=== PATIENT | female | born 1990 | race Caucasian/White ===

== ENCOUNTER 2019-12-24 09:23 | Emergency (ER) | payer SELFPAY ==
--- NOTE | ~2019-12-24 | XR_ITS ---
EXAMINATION: XR chest 2V DATE: 12/24/2019 09:52 INDICATION: Midline chest pain TECHNIQUE: PA and lateral views of the chest are obtained. COMPARISON: 11/06/2018 FINDINGS: The lungs are free of acute opacities. There is no pleural effusion or pneumothorax. The ca rdiomediastinal silhouette is normal. There is mild thoracic spondylosis. IMPRESSION: 1. No acute cardiopulmonary abnormality. Reviewed, dictated and finalized at location A.
--- NOTE | ~2019-12-24 | CT_ITS ---
EXAMINATION: CTA chest PE protocol DATE: 12/24/2019 10:36 INDICATION: Chest pain, history of pulmonary embolism TECHNIQUE: Computed tomography angiography (CTA) of the chest was performed with 100 mL Omnipaque-350 intravenous contrast timed to evaluate the pulmonary arteries. Coronal maximum intensity projection 3D-reconstructions were created by the technologist. The dose-length product (DLP) was 1015.30 mGy-cm . Automated exposure control and iterative reconstruction technique were employed. COMPARISON: 11/07/2018 FINDINGS: The pulmonary arteries are well-opacified. No pulmonary embolism is identified. Calcified p ulmonary nodules and calcified right hilar lymph nodes are consistent with old granulomatous disease. There is no pleural effusion or pneumothorax. The lungs are free of acute opacities. Triangular soft tissue density in the anterior mediastinum has the appearance of residual thymus. No pathologically enlarged thoracic lymph nodes are identified. The heart size is normal. The gallbladder is surgically absent. IMPRESSION: 1. No pulmonary embolism or acute cardiopulmonary abnormality. Reviewed, dictated and finalized at location A.
--- NOTE | 2019-12-24 09:25 | ECG_ITS ---
Measurements Intervals [place] Rate: 114 P: 40 HI: 154 QRS: -22 QRSD: 91 T: 19 QT: 320 QTc: 442 Interpretive Statements SINUS TACHYCARDIA LOW QRS VOLTAGE IN PRECORDIAL LEADS BORDERLINE R WAVE PROGRESSION, ANTERIOR LEADS INFERIOR INFARCT, AGE INDETERMINATE BASELINE ARTIFACT- II, III, AVR, AVF, V1-V4 ABNORMAL ECG Electronically Signed On 12-24-2019 12:03:25 CDT by Dorian Fraga D.O.
[2019-12-24 09:27] VITALS: BP 172/114; PULSE 116; RESP 30; TEMP 36.6; O2SAT 99
[2019-12-24 09:35] VITALS: PULSE 111
[2019-12-24 09:47] LABS: Basophils Percent Auto 0.1 % (0.2-1.2); Eosinophils Absolute Auto 0.2 K/mm3 (0-0.3); Eosinophils Percent Auto 2.9 % (0-4.4); Hematocrit 39.2 % (37.0-47.0); Hemoglobin 12.5 g/dL (12.0-15.0); Immature Granulocyte Absolute 0.02 K/mm3 (0.00-0.031); Immature Granulocyte Percent A 0.3 % (0-0.5); Lymphocytes Absolute Auto 1.35 K/mm3 (0.9-3.2); Lymphocytes Percent Auto 17.1 % (18.3-44.2); Mean Corpuscular HGB Conc 31.9 g/dl (32-36); Mean Corpuscular Hemoglobin 26.1 pg (26-34); Mean Corpuscular Volume 81.8 fl (80-100); Mean Platelet Volume 10.5 fl (7.4-10.4); Monocytes Absolute Auto 0.3 K/mm3 (0.1-0.6); Monocytes Percent Auto 3.8 % (2.6-8.5); Neutrophils Percent Auto 75.8 % (45.5-73.1); Platelet Count Result 325 k/mm3 (150-375); Red Blood Count 4.79 M/mm3 (4.2-5.4); White Blood Count 7.9 K/mm3 (4.5-10.0)
[2019-12-24 10:02] LABS: INR 1.1; Prothrombin Time 13.7 Seconds (11.1-14.7)
[2019-12-24 10:03] LABS: Partial Thromboplastin Time 30.3 SECONDS (22.3-36.8)
[2019-12-24 10:07] LABS: Anion Gap 8 mmol/L (8-16); Blood Urea Nitrogen 10 mg/dL (7-17); Calcium 8.7 mg/dL (8.4-10.2); Carbon Dioxide 25 mmol/L (22-30); Chloride 104 mmol/L (98-107); Estimated CRCL calculation 161 ml/min; Estimated Glomerular Filt Rate > 60; Glucose 100 mg/dL (65-105); Sodium 137 mmol/L (137-145)
--- NOTE | 2019-12-24 10:11 | ED.CHESTPAIN ---
HPI - Chest Pain General Chief Complaint: Chest Pain Stated Complaint: CP, PMH of blood clots Time Seen by Provider: 12/24/19 10:11 Source: patient Mode of arrival: ambulatory Limitations: no limitations History of Present Illness HPI narrative: Patient is a 29-year-old female with a history of lupus anticoagulant and factor V Leiden deficiency with history of blood clot who presents for evaluation of chest pain. Patient reports she has had chest pain over the left side of her chest over the past week. It is constant in nature. Not exacerbated with exertion. No associated fever, cough or shortness of breath. Patient states she has a history of anxiety and she has been off of her anticoagulation and feels very anxious regarding her lack of insurance and has not been able to follow-up with her other providers. Patient has been off of anticoagulation over a year and wanted to make sure she was not having a recurrent blood clot. Patient denies leg swelling or pain. No hemoptysis. PT endorses anxiety and panic often. Related Data Allergies Allergy/AdvReac Type Severity Reaction Status Date / Time No Known Allergies Allergy Unknown Unknown Verified 12/24/19 09:50 Review of Systems Review of Systems: Narrative: CONSTITUTIONAL: Denies fever, chills, or sweats. EYES: Denies visual changes, redness, or discharge. ENT: Denies rhinorrhea, congestion, sore throat, or otalgia. CARDIOVASCULAR: Reports chest pain, denies palpitations RESPIRATORY: Denies cough or dyspnea. GASTROINTESTINAL: Denies abdominal pain, nausea, vomiting, or diarrhea. GENITOURINARY: Denies dysuria or hematuria. SKIN: Denies rash or itching. MUSCULOSKELETAL: Denies back pain, joint pain, or myalgia. NEUROLOGIC: Denies headache, numbness, or weakness. [facility] Past Medical History Medical History (Updated 12/24/19 @ 11:39 by Buffy Phan MD) Anxiety Factor V Leiden Lupus anticoagulant positive Pulmonary embolism Family History Family History (Updated 03/31/17 @ 14:37 by DOCTOR UNKNOWN) Mother Patient's mother is in good health Father Patient's father is in good health Sibling Patient's sister is in good health Patient's brother is in good health Other Family history of malignant neoplasm Hypertension Social History Social History Smoking status: Never smoker Alcohol intake: current Exam Narrative: Exam Narrative: GENERAL: Awake, alert, conversant HEAD: Normocephalic, atraumatic. EYES: PERRLA and EOMI. ENT: Nares clear, no rhinorrhea or epistaxis. Mucous membranes moist. NECK: Supple. CHEST: No respiratory distress, breathing even and non labored, no chest wall tenderness HEART: Tachycardic rate, sinus rhythm ABDOMEN:Non distended, non tender EXTREMITIES: Normal range of motion. No edema. SKIN: Warm, dry, no rash. NEURO:No focal deficits. Alert and oriented x3 Psych: Patient endorses extreme anxiety Course Vital Signs Vital signs: Vital Signs Temperature 36.6 C 12/24/19 09:27 Pulse Rate 116 H 12/24/19 09:27 Respiratory Rate 30 H 12/24/19 09:27 Blood Pressure 172/114 H 12/24/19 09:27 Pulse Oximetry 99 12/24/19 09:27 Temperature 36.6 C 12/24/19 09:27 Pulse Rate 112 H 12/24/19 10:17 Respiratory Rate 31 H 12/24/19 10:17 Blood Pressure 118/66 12/24/19 10:17 Pulse Oximetry 100 12/24/19 10:17 MDM - Chest Pain MDM Narrative Medical decision making narrative: Patient presenting for evaluation of chest pain that has been present over a week. At the time of assessment, patient is hyperventilating, tearful, tachycardic. No hypotension. No reproducible chest wall pain. No hypoxemia. Given patient's history wanted to evaluate for any evidence of cardio pulmonary pathology. Imaging obtained, no evidence of PE on imaging. No COVID type features or evidence of pneumonia. Patient's vital signs normalized in the ER with heart rate 80, blood press
[2019-12-24] MEDS: ASPIRIN 81 MG CHEWABLE TABLET 324 MG PO (10:16)
[2019-12-24 10:17] VITALS: BP 118/66; PULSE 112; RESP 31; O2SAT 100
[2019-12-24 10:18] LABS: Troponin I < 0.012 ng/mL (0.000-0.034)
[2019-12-24 11:26] VITALS: BP 113/74; PULSE 90; RESP 12; O2SAT 98
[2019-12-24 11:46] VITALS: BP 116/97; PULSE 99; RESP 18; O2SAT 96
== END 2019-12-24 11:47 | disposition home or self-care (01) ==
PROVIDERS: Emergency Provider Emergency Medicine; PCP Internal Medicine
DX: D68.51 Activated protein C resistance (principal); Z86.711 Personal history of pulmonary embolism; F41.9 Anxiety disorder, unspecified
CPT/HCPCS: 36415; 71046; 71275; 80048; 84484; 85025; 85610; 85730; 93005; 99284; A9270; Q9967

== ENCOUNTER → 2020-09-30 12:18 | Outpatient (CLI) | payer OTHER, SELFPAY ==
--- NOTE | ~2020-09-30 | CT_ITS ---
EXAMINATION: CTA chest PE protocol EXAM DATE: 09/30/2020 13:32 INDICATION: Chest pain, HX OF PE . TECHNIQUE: Spiral CTA of the chest (pulmonary arteries) was performed with 100 cc Omnipaque 350 intr avenous contrast injection. Images were acquired during the pulmonary arterial phase. Coronal maxi mum intensity projection 3D-reconstructions were created by the technologist on dedicated workstation . Axial, coronal and sagittal reformatted images were reviewed. The dose-length product (DLP) for t his examination was 737.42 mGy-cm. The exposure was tailored according to patient size (auto mA exp osure control), and iterative reconstruction (ASIR) was used as additional dose reduction technique. Comparison is made to prior examination from 12/24/2019. FINDINGS: Chronic filling defect right lower lobe posterior basal segment, scarring from prior episo de of pulmonary embolism. No evidence of acute, treatable pulmonary embolism. No thoracic aortic diss ection. Chronic right basilar, hilar granulomata. No acute airspace disease. There are no pleural o r pericardial effusions. Tracheobronchial tree is patent. There is no mediastinal, hilar or axill justine lymphadenopathy. There is no pneumothorax. Heart normal in size. No evidence of coronary ar terial calcification. There are cholecystectomy clips. There is mild thoracic spondylosis without o steoblastic or osteolytic lesions identified. IMPRESSION: 1. No pulmonary emboli or acute findings. 2. 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 3. Right basilar granulomata. Reviewed, dictated and finalized at location B.
== END ==
PROVIDERS: PCP Internal Medicine; Visit Provider Internal Medicine
DX: R07.89 Other chest pain (principal)
CPT/HCPCS: 71275; Q9967

== ENCOUNTER 2021-02-12 20:54 | Emergency (ER) | payer OTHER, SELFPAY ==
--- NOTE | ~2021-02-12 | XR_ITS ---
EXAMINATION: XR chest 2V 02/12/2021 21:41 INDICATION: 2 view chest PROCEDURE: 2 view chest COMPARISON: 12/24/2019 FINDINGS: The lungs are clear. The cardiomediastinal silhouette is within normal limits. There are no pleural effusions. There is no pneumothorax suspected. There is calcified granuloma in the right midlung zone. IMPRESSION: 1: NO ACUTE CARDIOPULMONARY DISEASE. Reviewed, dictated and finalized at location A.
--- NOTE | 2021-02-12 21:20 | ECG_ITS ---
Measurements Intervals [place] Rate: 115 P: 40 AL: 162 QRS: -29 QRSD: 74 T: 15 QT: 342 QTc: 474 Interpretive Statements SINUS TACHYCARDIA VOLTAGE CRITERIA FOR LVH POOR R WAVE PROGRESSION, CONSIDER ANTERIOR INFARCT INFERIOR INFARCT, AGE INDETERMINATE BASELINE ARTIFACT- I, II, III, AVR, AVL, V1-V4 ABNORMAL ECG Electronically Signed On 02-13-2021 6:39:51 CDT by Dorian Fraga D.O.
[2021-02-12 21:24] VITALS: BP 137/103; PULSE 125; RESP 24; TEMP 36.3; O2SAT 99
[2021-02-12 21:48] LABS: Basophils Percent Auto 0.2 % (0.2-1.2); Eosinophils Absolute Auto 0.2 K/mm3 (0-0.3); Eosinophils Percent Auto 2.1 % (0-4.4); Hematocrit 41.7 % (37.0-47.0); Hemoglobin 13.4 g/dL (12.0-15.0); Immature Granulocyte Absolute 0.02 K/mm3 (0.00-0.031); Immature Granulocyte Percent A 0.2 % (0-0.5); Lymphocytes Absolute Auto 1.68 K/mm3 (0.9-3.2); Lymphocytes Percent Auto 20.3 % (18.3-44.2); Mean Corpuscular HGB Conc 32.1 g/dl (32-36); Mean Corpuscular Hemoglobin 27.1 pg (26-34); Mean Corpuscular Volume 84.2 fl (80-100); Mean Platelet Volume 10.4 fl (7.4-10.4); Monocytes Absolute Auto 0.4 K/mm3 (0.1-0.6); Monocytes Percent Auto 4.8 % (2.6-8.5); Neutrophils Percent Auto 72.4 % (45.5-73.1); Platelet Count Result 328 k/mm3 (150-375); Red Blood Count 4.95 M/mm3 (4.2-5.4); Red Cell Distribution Width 14.1 % (11.5-14.5); White Blood Count 8.3 K/mm3 (4.5-10.0)
[2021-02-12 21:52] LABS: Prothrombin Time 13.5 Seconds (11.1-14.7)
[2021-02-12 21:53] LABS: Partial Thromboplastin Time 34.9 SECONDS (22.3-36.8)
[2021-02-12 21:58] LABS: Anion Gap 10 mmol/L (8-16); Blood Urea Nitrogen 10 mg/dL (7-17); Calcium 9.6 mg/dL (8.4-10.2); Carbon Dioxide 25 mmol/L (22-30); Chloride 105 mmol/L (98-107); Estimated CRCL calculation 165 ml/min; Estimated Glomerular Filt Rate > 60; Glucose 112 mg/dL (65-110); Potassium 3.9 mmol/L (3.4-5.0); Sodium 140 mmol/L (137-145)
[2021-02-12 22:09] LABS: Troponin I < 0.012 ng/mL (0.000-0.034)
[2021-02-12 22:15] VITALS: BP 139/101; PULSE 103; RESP 22; O2SAT 98
[2021-02-12 22:18] VITALS: PULSE 103
[2021-02-12 23:09] LABS: D Dimer 0.34 ug/mL (<0.48)
[2021-02-12] MEDS: LORazepam INJ (*CRX) 2 MG/ML VIAL 0.5 MG IV PUSH (23:09)
--- NOTE | 2021-02-13 00:54 | ED.GENADULT ---
HPI - General Adult General Chief complaint: Chest Pain Stated complaint: chest pain Time Seen by Provider: 02/12/21 22:02 History of Present Illness HPI narrative: Patient is a 30-year-old female who presents ER with chest pain. It occurs occasional on her left side and the right side of her chest. It can occur for hours at a time. Unknown what provokes it. Gets better when she lies down and rests. Associate with anxiety. Has history of PE and intermittently takes her medication because she will sometimes forget. No hemoptysis. No fevers or chills or sweats. No difficulty breathing. Related Data Allergies Allergy/AdvReac Type Severity Reaction Status Date / Time No Known Allergies Allergy Unknown Unknown Verified 12/24/19 09:50 Review of Systems Review of Systems: All systems reviewed & are unremarkable except as noted in HPI and below Constitutional: Constitutional: Denies chills, Denies fever(s) and Denies weakness ENT: Denies nasal congestion and Denies sore throat Cardiovascular: Cardiovascular: Reports chest pain, Denies rapid heart rate and Denies radiating jaw, neck or arm pain Respiratory: Respiratory: Denies cough, Denies dyspnea and Denies wheezing Gastrointestinal: Gastrointestinal: Denies abdominal pain, Denies nausea and Denies vomiting Musculoskeletal: Musculoskeletal: Reports muscle cramps Psychiatric: Psychiatric: Reports anxiety PMFSH Past Medical History Medical History (Updated 02/13/21 @ 01:00 by Kj oRdgers MD) Anxiety Factor V Leiden Lupus anticoagulant positive Pulmonary embolism Family History Family History (Updated 03/31/17 @ 14:37 by DOCTOR UNKNOWN) Mother Patient's mother is in good health Father Patient's father is in good health Sibling Patient's sister is in good health Patient's brother is in good health Other Family history of malignant neoplasm Hypertension Social History Social History Smoking status: Never smoker Alcohol intake: current Exam Narrative: GENERAL: Anxious-appearing, obese, and in no acute distress. HEAD: Normocephalic, atraumatic. EYES: PERRL and EOMI. CHEST: Clear to auscultation. No respiratory distress. HEART: Tachycardic and regular. Normal peripheral pulses. EXTREMITIES: Normal range of motion. No edema. SKIN: Warm, dry, no rash. NEURO: Alert and oriented x3. PSYCH: Anxious and tearful about her health. Normal thought content otherwise. Course Course Emergency Course: Patient is only tachycardic when she begins talking about her perceived medical issue and becomes anxious. Otherwise she rest comfortably with a normal heart rate and normal respiratory rate. She is without hypoxia. D-dimer negative. Symptoms felt to be anxiety related and not related to UT or PE. Discharge home. Patient does feel improvement with Ativan. Vital Signs Vital signs: Vital Signs Temperature 97.3 F L 02/12/21 21:24 Pulse Rate 125 H 02/12/21 21:24 Respiratory Rate 24 H 02/12/21 21:24 Blood Pressure 137/103 H 02/12/21 21:24 Pulse Oximetry 99 02/12/21 21:24 Temperature 97.3 F L 02/12/21 21:24 Pulse Rate 103 H 02/12/21 22:18 Respiratory Rate 22 H 02/12/21 22:15 Blood Pressure 139/101 H 02/12/21 22:15 Pulse Oximetry 98 02/12/21 22:15 Medical Decision Making Vital Signs Vital Signs: Vital Signs Temperature 97.3 F L 02/12/21 21:24 Pulse Rate 125 H 02/12/21 21:24 Respiratory Rate 24 H 02/12/21 21:24 Blood Pressure 137/103 H 02/12/21 21:24 Pulse Oximetry 99 02/12/21 21:24 Temperature 97.3 F L 02/12/21 21:24 Pulse Rate 103 H 02/12/21 22:18 Respiratory Rate 22 H 02/12/21 22:15 Blood Pressure 139/101 H 02/12/21 22:15 Pulse Oximetry 98 02/12/21 22:15 Lab Data Result diagrams: 02/12/21 21:36 02/12/21 21:36 Labs: Lab Results 02/12/21 02/12/21 02/12/21 Range/Units 21:36 21:36 21:
[2021-02-13 01:08] VITALS: BP 134/95; PULSE 99; RESP 98; O2SAT 20
== END 2021-02-13 01:17 | disposition home or self-care (01) ==
PROVIDERS: Emergency Provider Emergency Medicine; PCP Internal Medicine
DX: R07.89 Other chest pain (principal); F41.9 Anxiety disorder, unspecified; D68.51 Activated protein C resistance; Z86.711 Personal history of pulmonary embolism; R00.0 Tachycardia, unspecified; R94.31 Abnormal electrocardiogram [ECG] [EKG]; Z79.01 Long term (current) use of anticoagulants
CPT/HCPCS: 36415; 71046; 80048; 84484; 85025; 85380; 85610; 85730; 93005; 96374; 99284; J2060

== ENCOUNTER 2022-03-20 11:29 | Emergency (ER) | payer OTHER, SELFPAY ==
[2022-03-20] VITALS (9 sets, daily range): BP systolic 104–149; BP diastolic 68–93; PULSE 68–96; RESP 18–20; TEMP 36.4; O2SAT 98–100
--- NOTE | ~2022-03-20 | XR_ITS ---
XR chest 2V 03/20/2022 12:55 Indication: Sided chest pain. History of pulmonary embolism. Procedure: PA and lateral views of the chest Comparison: Comparison to multiple prior studies sequentially, with oldest reviewed study dated 06/09. Findings: Heart size normal. No focal air space disease, pulmonary edema, pleural effusion or suspect ed pneumothorax. There are calcified granulomas in the right lung. Impression: 1: No acute cardiopulmonary disease. Reviewed, dictated and finalized at location A. ATION PROFESSOR Impression: 1: No acute cardiopulmonary disease.
--- NOTE | 2022-03-20 11:31 | ECG_ITS ---
Measurements Intervals [place] Rate: 78 P: 49 MS: 157 QRS: -6 QRSD: 91 T: 23 QT: 375 QTc: 428 Interpretive Statements SINUS RHYTHM BASELINE ARTIFACT MODERATE VOLTAGE CRITERIA FOR LVH, CONSIDER NORMAL VARIANT CANNOT RULE OUT ANTERIOR MYOCARDIAL INFARCTION , OF INDETERMINATE AGE ABNORMAL ECG COMPARED TO ECG 02/12/2021 21:27:20 HEART RATE HAS DECREASED CRITERIA FOR INFERIOR INFARCTION NO LONGER APPRECIATED Electronically Signed On 03-20-2022 14:11:53 CABINETMAKER SUPERVISOR by Ry Dillon M.D.
[2022-03-20 11:50] LABS: Basophils Percent Auto 0.1 % (0.2-1.2); Eosinophils Absolute Auto 0.1 K/mm3 (0-0.3); Eosinophils Percent Auto 1.7 % (0-4.4); Hematocrit 38.1 % (37.0-47.0); Hemoglobin 12.2 g/dL (12.0-15.0); Immature Granulocyte Absolute 0.01 K/mm3 (0.00-0.031); Immature Granulocyte Percent A 0.1 % (0-0.5); Lymphocytes Absolute Auto 1.28 K/mm3 (0.9-3.2); Lymphocytes Percent Auto 18.6 % (18.3-44.2); Mean Corpuscular Hemoglobin 26.7 pg (26-34); Mean Corpuscular Volume 83.4 fl (80-100); Mean Platelet Volume 9.8 fl (7.4-10.4); Monocytes Absolute Auto 0.3 K/mm3 (0.1-0.6); Monocytes Percent Auto 4.6 % (2.6-8.5); Neutrophils Absolute Auto 5.2 K/mm3 (1.3-6.7); Neutrophils Percent Auto 74.9 % (45.5-73.1); Platelet Count Result 288 k/mm3 (150-375); Red Blood Count 4.57 M/mm3 (4.2-5.4); Red Cell Distribution Width 14.6 % (11.5-14.5); White Blood Count 6.9 K/mm3 (4.5-10.0)
[2022-03-20 12:02] LABS: Alanine Aminotransferase 28 U/L (6-35); Albumin Level 4.5 g/dL (3.5-5.1); Alkaline Phosphatase 88 U/L (38-126); Anion Gap 8 mmol/L (8-16); Aspartate Amino Transferase 25 U/L (14-36); Bilirubin,Total 0.6 mg/dL (0.2-1.3); Blood Urea Nitrogen 7 mg/dL (7-17); Calcium 9.4 mg/dL (8.4-10.2); Carbon Dioxide 24 mmol/L (22-30); Chloride 105 mmol/L (98-107); Estimated CRCL calculation 193 ml/min; Estimated Glomerular Filt Rate > 60; Glucose 101 mg/dL (65-110); Lipase 53 U/L (23-300); Potassium 3.8 mmol/L (3.4-5.0); Sodium 137 mmol/L (137-145)
[2022-03-20 12:04] LABS: Prothrombin Time 13.2 Seconds (11.1-14.7)
[2022-03-20 12:13] LABS: Troponin I < 0.012 ng/mL (0.000-0.034)
--- NOTE | 2022-03-20 13:50 | ED.CHESTPAIN ---
HPI - Chest Pain General Chief Complaint: Chest Pain Stated Complaint: chest pain, 11 wks preg Time Seen by Provider: 03/20/22 13:07 History of Present Illness HPI narrative: 31-year-old female with history of factor V Leiden and pulmonary embolism presenting the emergency department for evaluation after having an episode of chest pain. Patient states her last PE was in 2015, patient is approximate 11 weeks and is not currently taking Eliquis. Patient states that she had onset of left-sided chest pain at rest. Patient states the chest pain was sharp and lasted approximately 3 seconds. Patient states she has had no further chest pain since. Patient denies any current. Patient denies any associated shortness of breath Patient does have follow-up with Dr. Quesada Related Data Home Medications Medication Instructions Recorded Confirmed sertraline 100 mg tablet mg 03/20/22 Allergies Allergy/AdvReac Type Severity Reaction Status Date / Time No Known Allergies Allergy Unknown Unknown Verified 03/20/22 12:36 Review of Systems Review of Systems: CONSTITUTIONAL: Denies fever, chills, or sweats. EYES: Denies visual changes, redness, or discharge. ENT: Denies rhinorrhea, congestion, sore throat, or otalgia. CARDIOVASCULAR: See HPI RESPIRATORY: Denies cough or dyspnea. GASTROINTESTINAL: Denies abdominal pain, nausea, vomiting, or diarrhea. GENITOURINARY: Denies dysuria or hematuria. SKIN: Denies rash or itching. MUSCULOSKELETAL: Denies back pain, joint pain, or myalgia. NEUROLOGIC: Denies headache, numbness, or weakness. PMFSH Past Medical History Medical History (Updated 03/20/22 @ 15:51 by Chris Cline MD) Anxiety Factor V Leiden Lupus anticoagulant positive Pulmonary embolism Family History Family History (Updated 03/31/17 @ 14:37 by DOCTOR UNKNOWN) Mother Patient's mother is in good health Father Patient's father is in good health Sibling Patient's sister is in good health Patient's brother is in good health Other Family history of malignant neoplasm Hypertension Social History Social History Smoking status: Never smoker Alcohol intake: current Exam Narrative: APPEARANCE: Well appearing, no pain, no distress, well-nourished. HEAD: normocephalic, atraumatic. EYES: PERRLA/EOMI, conjunctivae clear. NOSE: Normal no drainage NECK: Supple. No adenopathy, no masses. RESPIRATORY: Airway patent, respirations nonlabored. Clear to auscultation bilaterally, no rales, rhonchi, wheezing. CARDIOVASCULAR: Regular rate and rhythm without murmurs rubs or gallops. ABDOMINAL: Soft, nontender, nondistended, normal bowel sounds MUSCULOSKELETAL: Moves all extremities. Strength/ROM intact, No edema, No calf tenderness. NEURO: Alert. Cranial nerves II through XII intact. Grossly intact SKIN: Warm, dry. Normal Color Course Course Emergency Course: Patient is nontachycardic or hypoxic. Patient denies any current chest pain or shortness of breath. Patient is afebrile with no leukocytosis. Patient's x-ray shows no acute cardiopulmonary malady. Patient's troponin was negative. Patient states she was supposed to be in contact with her [facility] [employer] [facility] in order to start taking Lovenox but has not yet started this. Patient discussed with Dr. Cummings and we will comfortable with the plan to start the patient on low-dose Lovenox daily. He will see the patient as outpatient. Patient was updated on the results of her work-up including the negative troponins. Patient was also comfortable with the plan to start Lovenox. All questions and concerns were addressed. Vital Signs Vital signs: Vital Signs Temperature 97.6 F 03/20/22 11:37 Pulse Rate 95 03/20/22 11:37 Respiratory Rate 18 03/20/22 11:37 Blood Pressure 149/82 H 03/20/22 11:37 Pulse Oximetry 100 03/20/22 11:37 Oxygen Delivery Room Air 03/20/22 11:37 Temperature 97.6 F 1
[2022-03-20 15:16] LABS: Troponin I < 0.012 ng/mL (0.000-0.034)
[2022-03-20] MEDS: ENOXAPARIN 40 MG/0.4 ML SYRINGE SUB-Q (16:08)
== END 2022-03-20 16:15 | disposition home or self-care (01) ==
PROVIDERS: Emergency Medicine; Emergency Provider Emergency Medicine; PCP Internal Medicine
DX: O26.891 Other specified pregnancy related conditions, first trimester (principal); R07.89 Other chest pain; D68.51 Activated protein C resistance; Z3A.11 11 weeks gestation of pregnancy; Z86.711 Personal history of pulmonary embolism
CPT/HCPCS: 36415; 71046; 80053; 83690; 84484; 85025; 85610; 85730; 93005; 96372; 99284; J1650

== ENCOUNTER 2022-10-04 17:19 | Emergency (ER) | payer OTHER, SELFPAY ==
--- NOTE | ~2022-10-04 | XR_ITS ---
EXAM: XR hip RT min 2V DATE: 10/04/2022 20:22 HISTORY: R posterior hip pain x 2 days s/p giving . No injury. . COMPARISON: None available. FINDINGS: Normal mineralization. No fracture or dislocation. No lytic or blastic lesion. Joint space s are maintained. No erosion or periosteal change. Soft tissues within normal limits. IMPRESSION: No acute osseous finding in the right hip. Reviewed, dictated and finalized at location K.
[2022-10-04 17:24] VITALS: BP 152/100; PULSE 108; RESP 18; TEMP 36.3; O2SAT 98
[2022-10-04] MEDS: CYCLOBENZAPRINE HCL 10 MG TABLET PO (21:29)
[2022-10-04] MEDS: HYDROcodone/acetaminophen (*CRX) 5-325 MG TABLET 1 TAB PO (21:29)
[2022-10-04 21:47] VITALS: BP 148/96; PULSE 99; RESP 18; O2SAT 98
--- NOTE | 2022-10-08 23:36 | ED.GENADULT ---
HPI - General Adult General Chief complaint: Unspecified Stated complaint: right hip pain Time Seen by Provider: 10/04/22 19:45 History of Present Illness HPI narrative: 31-year-old female presents emerged department for evaluation of right hip pain. 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 Patient does report increased pain with ambulation. Patient states the pain starts at the lower back radiates to the right hip and partially down the right thigh. Patient denies any specific falls or injuries. Patient states home medications are not helping to control this. Related Data Home Medications Medication Instructions Recorded Confirmed sertraline 100 mg tablet mg 03/20/22 08/16/22 aspirin 81 mg tablet,delayed 162 mg PO DAILY 08/16/22 08/16/22 release (Adult Aspirin Regimen) Allergies Allergy/AdvReac Type Severity Reaction Status Date / Time No Known Allergies Allergy Unknown Unknown Verified 08/16/22 09:47 Review of Systems Review of Systems: All systems reviewed & are unremarkable except as noted in HPI and below PMFSH Past Medical History Medical History Anxiety Factor V Leiden Lupus anticoagulant positive Pulmonary embolism Family History Family History Mother Patient's mother is in good health Father Patient's father is in good health Sibling Patient's sister is in good health Patient's brother is in good health Other Family history of malignant neoplasm Hypertension Social History Social History Smoking status: Never smoker Alcohol intake: current Lack of Transportation: No Lack of Food: Never True Current Housing: I Have Housing Concerned About Future Housing: No Difficulty Paying Gas/Electric Bills: No Difficulty Paying for Meds: No Education: Bachelor's Degree Difficulty w/ Childcare or Family Care: No Living arrangements: with family Gender identity (if verbalized by the patient): Female Exam Narrative: APPEARANCE: Well appearing, no pain, no distress, well-nourished. HEAD: normocephalic, atraumatic. EYES: PERRLA/EOMI, conjunctivae clear. NOSE: Normal no drainage NECK: Supple. No adenopathy, no masses. RESPIRATORY: Airway patent, respirations nonlabored. Clear to auscultation bilaterally, no rales, rhonchi, wheezing. CARDIOVASCULAR: Regular rate and rhythm without murmurs rubs or gallops. ABDOMINAL: Soft, nontender, nondistended, normal bowel sounds MUSCULOSKELETAL: Moves all extremities. Strength/ROM intact, No edema, No calf tenderness. Reproducible right buttock tenderness consistent with sciatica NEURO: Alert. Cranial nerves II through XII intact. Grossly intact SKIN: Warm, dry. Normal Color Course Course Emergency Course: -year-old female presented ED for evaluation of right leg pain. Exam was consistent with sciatica. Patient was started on medications for pain control and was also started on a Medrol Dosepak for home. All question concerns were addressed. Patient was comfortable with the plan for close follow-up with her primary care physician. Vital Signs Vital signs: Vital Signs Temperature 97.4 F L 10/04/22 17:24 Pulse Rate 108 H 10/04/22 17:24 Respiratory Rate 18 10/04/22 17:24 Blood Pressure 152/100 H 10/04/22 17:24 Pulse Oximetry 98 10/04/22 17:24 Temperature 97.4 F L 10/04/22 17:24 Pulse Rate 99 10/04/22 21:47 Respiratory Rate 18 10/04/22 21:47 Blood Pressure 148/96 H 10/04/22 21:47 Pulse Oximetry 98 10/04/22 21:47 Medical Decision Making Differential Diagnosis Differential Diagnosis: Right hip strain, sciatica, muscular strain Vital Signs Vital Signs: Vital Signs Temperature 97.4 F L 10/04/22 17:24 Pulse Rate 108 H 10/04/22 17:24 Respiratory Rate 18
== END 2022-10-04 21:50 | disposition home or self-care (01) ==
PROVIDERS: Emergency Provider Emergency Medicine; PCP Internal Medicine
DX: O99.893 Other specified diseases and conditions complicating puerperium (principal); M54.31 Sciatica, right side; O99.13 Other diseases of the blood and blood-forming organs and certain disorders involving the immune mechanism complicating the puerperium; D68.312 Antiphospholipid antibody with hemorrhagic disorder; O99.345 Other mental disorders complicating the puerperium; F41.9 Anxiety disorder, unspecified; Z86.711 Personal history of pulmonary embolism; Z79.82 Long term (current) use of aspirin
CPT/HCPCS: 73502; 99283; A9270